=== PATIENT | female | born 1970 | race Caucasian/White ===

== ENCOUNTER 2019-03-13 12:20 | Emergency (ER) | payer OTHER ==
[2019-03-13] MEDS ORDERED: Ondansetron 4 MG/2 ML SDV IVPUSH ONE (12:35)
[2019-03-13] MEDS ORDERED: HYDROmorphone 1 MG/ML Syringe IVPUSH ONE (12:35)
[2019-03-13] MEDS ORDERED: Iopamidol 612 MG/ML 100 ML Bottle IVPUSH ONE (13:08)
[2019-03-13 13:34] LABS: ANION GAP 15.1; CHLORIDE,CL 104 mmol/L (101-111); SODIUM,NA 138 mmol/L (135-145)
--- NOTE | 2019-03-13 13:37 | EDM.PDOC ---
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 noted " hearing Pop during intercourse then sudden sharp pain. No prior discomfort, difficulty with urination or bowel c/o Lower Abdomen Pain Score (Numeric/FACES): 9 - Related Data Allergies Allergy/AdvReac Type Severity Reaction Status Date / Time No Known Allergies Allergy Verified 03/13/19 12:29 Home Meds: Home Meds . [No Known Home Meds] 03/13/19 [History] Past Medical History - Past Surgical History GI Surgical History: Reports: Other (See Below) Other GI Surgeries/Procedures: Rectal Prolapse with surgical repair Female Surgical History: Reports: Hysterectomy ED ROS GENERAL - Review of Systems Review Of Systems: Comprehensive ROS is negative, except as noted in HPI. ED EXAM, RENAL/ - Physical Exam Exam: See Below Exam Limited By: No Limitations General Appearance: Alert, Moderate Distress Eye Exam: Bilateral Eye: EOMI Ears: Normal External Exam Nose: Normal Inspection Throat/Mouth: Normal Inspection, Normal Lips, Normal Voice Head: Atraumatic, Normocephalic Neck: Normal Inspection Respiratory/Chest: No Respiratory Distress, Lungs Clear, Decreased Breath Sounds Cardiovascular: Normal Peripheral Pulses, Regular Rate, Rhythm GI/Abdominal: Normal Bowel Sounds, Soft, Tender (lower abdomen, greater lateral right . ) Back Exam: Full Range of Motion Neurological: Alert, Oriented, Normal Cognition Psychiatric: Normal Affect Skin Exam: Warm, Dry, Intact, Normal Color Course - Vital Signs Last Recorded V/S: Last Vital Signs Temp 96.4 F 03/13/19 12:28 Pulse 98 03/13/19 12:28 Resp 18 03/13/19 12:28 BP 130/96 H 03/13/19 12:28 Pulse Ox 100 03/13/19 12:28 - Orders/Labs/Meds Labs: Laboratory Tests 03/13/19 03/13/19 03/13/19 Range/Units 12:49 12:49 13:20 WBC 6.7 (5.0-10.0) 10^3/uL RBC 4.29 (4.2-5.4) 10^6/uL Hgb 13.6 (12.0-16.0) g/dL Hct 38.9 (37.0-47.0) % MCV 90.7 (80-100) fL MCH 31.7 (27.0-34.0) pg MCHC 35.0 (33.0-35.0) g/dL Plt Count 251 (150-450) 10^3/uL Neut % (Auto) 55.5 (42.2-75.2) % Lymph % (Auto) 33.9 (20.5-50.1) % Mchenry % (Auto) 6.8 (2-8) % Eos % (Auto) 3.4 H (1.0-3.0) % Baso % (Auto) 0.4 (0.0-1.0) % Sodium 138 (135-145) mmol/L Potassium 4.1 (3.6-5.0) mmol/L Chloride 104 (101-111) mmol/L Carbon Dioxide 23.0 (21.0-31.0) mmol/L Anion Gap 15.1 BUN 21 H (7-18) mg/dL Creatinine 0.8 (0.6-1.3) mg/dL Est Cr Clr Drug Dosing 75.07 mL/min Estimated GFR (MDRD) > 60 BUN/Creatinine Ratio 26.25 Glucose 103 (74-105) mg/dL Calcium 10.0 (8.4-10.2) mg/dl Total Bilirubin 0.6 (0.2-1.0) mg/dL AST 20 (10-42) IU/L ALT 22 (10-60) IU/L Alkaline Phosphatase 58 (42-121) IU/L Total Protein 7.6 (6.7-8.2) g/dl Albumin 4.4 (3.2-5.5) g/dl Globulin 3.2 Albumin/Globulin Ratio 1.38 Urine Color Yellow (YELLOW) Urine Appearance Slightly cloudy (CLEAR) Urine pH 7.5 (5.0-9.0) Ur Specific Elon 1.020 (1.005-1.030) Urine Protein Negative (NEGATIVE) Urine Glucose (UA) Negative (NEGATIVE) Urine Ketones Negative (NEGATIVE) Urine Occult Blood Large H (NEGATIVE) Urine Nitrite Negative (NEGATIVE) Urine Bilirubin Negative (NEGATIVE) Urine Urobilinogen 0.2 (0.2-1.0) mg/dL Ur Leukocyte Esterase Small H (NEGATIVE) Urine RBC 50-75 H /HPF Urine WBC 5-10 H (0-5/HPF) /HPF Ur Epithelial Cells Rare (NOT SEEN) /HPF Urine Bacteria Not seen (0-FEW/HPF) /HPF Urine Other Meds: Medications Discontinued Medications Generic Name Dose Route Start Last Admin Trade Name Freq PRN Reason Stop Dose Admin Hydromorphone HCl 1 mg 03/13/19 12:35 03/13/19 13:01 Dilaudid IVPUSH 03/13/19 12:36 1 mg ONETIME ONE Administration Iopamidol 100 ml 03/13/19 13:08 03/13/19 14:06 Isovue-300 (61%) IVPUSH 03/13/19 13:09 75 ml ONETIME ONE Administration Ondansetron HCl 4 mg 03/13/19 12:35 03/13/19 12:59 Zofran IVPUSH 03/13/19 12:36 4 mg ONETIME ONE Administration - Radiology Interpretation Free Text/Narrative:: Final Radiology Report Call: [phone] assistance Online chat: [email or web address] Name: ELLE GARCIA Age: 48Years F Date: 03/13/2019 SSN: -- : [id number] Study: CT ABDOMEN/PELVIS W Requesting Physician: PRO ALLISON Images: 230 Addl Studies: Provided Clinical History: Contrast: With Contrast Medium: isovue 300 Contrast Amount: 75 mL Contrast Method: iv Page 1 of 2 PROCEDURE INFORMATION: Exam: CT Abdomen And Pelvis With Contrast Exam date and time: 03/13/2019 1:52 PM Age: 48 years old Clinical indication: Abdominal pain; Patient HX: Erum pelvic pain, S/P cyst 7 weeks ago TECHNIQUE: Imaging protocol: Computed tomography of the abdomen and pelvis with intravenous contrast. Radiation optimization: All CT scans at this facility use at least one of these dose optimization techniques: automated exposure control; mA and/or kV adjustment per patient size (includes targeted exams where dose is matched to clinical indication); or iterative reconstruction. Contrast material: ISOVUE 300; Contrast volume: 75 ml; Contrast route: IV; COMPARISON: No relevant prior studies available. FINDINGS: Lungs: There are no suspicious pulmonary nodules or areas of lung consolidation. Liver: The liver is normal in architecture, without suspicious abnormality. Gallbladder and bile ducts: No calcified gallstones. No ductal dilation. Pancreas: The pancreatic parenchyma is normal in bulk and sharply marginated. Duct is not dilated. No calcifications, masses, or abnormal fluid collections. Spleen: Spleen is normal in size. No mass or fluid collection. Adrenals: There are no adrenal masses. Kidneys and ureters: Normal in parenchymal bulk. No hydronephrosis or asymmetric perinephric stranding. No solid masses. Punctate nonobstructing calcification right renal sinus and a few nonobstructing stones on the left also. Distal ureters are difficult to delineate in the pelvis. Stomach and bowel: No significant abnormalities of the stomach. There are no dilated or thickened small bowel loops. Gas and stool of appropriate quantities are seen in the colon. No mass. ELLE GARCIA | Final Radiology Report CONFIDENTIALITY STATEMENT This report is intended only for use by the referring physician, and only in accordance with law. If you received this in error, call [phone]. Page 2 of 2 Appendix: No evidence of appendicitis. Intraperitoneal space: No ascites. No abscess. No inflammation within the intra- abdominal fat. No pneumoperitoneum. No mass. Vasculature: There is atherosclerotic calcification of the aorto-iliac tree. There is no abdominal aortic aneurysm. Multiple phleboliths are present bilaterally low within the pelvis. Lymph nodes: Unremarkable. No enlarged lymph nodes. Bladder: The bladder is nearly completely void of urine. Reproductive: Unremarkable as visualized. Bones/joints: Age appropriate. No acute fracture. No dislocation. Soft tissues: See Intraperitoneal Space Finding. IMPRESSION: 1. No definitive sign of acute intra-abdominal pathology. 2. Ureters are difficult to delineate in the pelvis, making nonobstructing distal ureteral calculi difficult to exclude. Thank you for allowing us to participate in the care of your patient - Re-Assessments/Exams Free Text/Narrative Re-Assessment/Exam: 03/13/19 15:05 pain improved. Departure - Departure Time of Disposition: 15:02 Disposition: Home, Self-Care 01 Condition: Good Clinical Impression: Pelvic pain, Status post hysterectomy - Discharge Information *PRESCRIPTION DRUG MONITORING PROGRAM REVIEWED*: No *COPY OF PRESCRIPTION DRUG MONITORING REPORT IN PATIENT NANCIE: No Instructions: Pelvic Pain, Female, [id number] Forms: ED Department Discharge Additional Instructions: light activity no lifting greater than 10# x 24 hours, gradual increase as tolerated alternate tylenol and ibuprofen every 4 hours as needed for discomfort diet as tolerated Telephne contact with surgeon to determine if need for further follow up. Sepsis Event Note - Evaluation Sepsis Screening Result: Possible Sepsis Risk - Focused Exam Date Exam was Performed: 03/15/19 Time Exam was Performed: 06:23
== END 2019-03-13 15:25 | disposition home or self-care (01) ==
LOC: DL.ED 12:20
DX: R10.2 Pelvic and perineal pain (principal); Z90.710 Acquired absence of both cervix and uterus
CPT/HCPCS: 36415; 74177; 80053; 81001; 85025; 87086; 96374; 96375; 99284; J1170; J2405; Q9967

== ENCOUNTER 2019-08-18 12:23 | Emergency (ER) | payer SELFPAY ==
[2019-08-18] MEDS ORDERED: Lidocaine 1% 30 ML SDV INJECT ONE (14:06)
[2019-08-18] MEDS ORDERED: Bacitracin Oint 1 GM U/D Packet TOP ONE (14:06)
--- NOTE | 2019-08-18 14:12 | EDM.PDOC ---
Scribed by Freda Finney 08/18/19 [id number] for Anuel Price MD ED HPI GENERAL MEDICAL PROBLEM - General Chief Complaint: Laceration Stated Complaint: FISH HOOK IN FINGER Time Seen by Provider: 08/18/19 14:05 Source of Information: Reports: Patient, RN, RN Notes Reviewed History Limitations: Reports: No Limitations - History of Present Illness INITIAL COMMENTS - FREE TEXT/NARRATIVE: Patient presents to ER by POV with complaint of a fishhook in her right index finger. No other injury. Tetanus is up to date. Onset: Today Duration: Getting Worse Location: Reports: Upper Extremity, Right Quality: Reports: Ache Severity: Mild Improves with: Reports: None Worsens with: Reports: None Associated Symptoms: Reports: No Other Symptoms - Related Data Allergies Allergy/AdvReac Type Severity Reaction Status Date / Time No Known Allergies Allergy Verified 03/13/19 12:29 Home Meds: Home Meds . [No Known Home Meds] 03/13/19 [History] Past Medical History - Past Surgical History GI Surgical History: Reports: Other (See Below) Other GI Surgeries/Procedures: Rectal Prolapse with surgical repair Female Surgical History: Reports: Hysterectomy ED ROS GENERAL - Review of Systems Review Of Systems: Comprehensive ROS is negative, except as noted in HPI. ED EXAM, SKIN/RASH Exam: See Below Exam Limited By: No Limitations General Appearance: Alert, WD/WN, No Apparent Distress Head: Atraumatic, Normocephalic Respiratory/Chest: No Respiratory Distress Cardiovascular: Normal Peripheral Pulses Extremities: Other (fishhook stuck in right distal index finger. No sign of infection. ) Neurological: Alert, Oriented, No Motor/Sensory Deficits Psychiatric: Normal Mood ED SKIN PROCEDURES - Additional/Other Procedure(s) Other (Free Text) Procedure(s): Fish hook removal right index finger. Area cleaned and prepped by RN with hibiclens and sterile water. Area of fish hook locally blocked with lidocaine 1% 5cc. Using clean tech. the eye of the hook and lure were cut free and removed with side cutter. The hook shank grasped with needle nosed plier and advanced until the hook and gamaliel were exposed through the skin and removed with side cutter. The remaining hook backed out the entry wound. No residual foreign body. Wound was cleansed, and dried, bacitracin ointment applied, and dressing by RN. No complications. Course - Orders/Labs/Meds Meds: Medications Discontinued Medications Generic Name Dose Route Start Last Admin Trade Name Rashmi PRN Reason Stop Dose Admin Bacitracin 1 dose 08/18/19 14:06 Bacitracin Oint 1 Gm TOP 08/18/19 14:07 ONETIME ONE Lidocaine HCl 30 ml 08/18/19 14:06 Xylocaine-Mpf 1% INJECT 08/18/19 14:07 ONETIME ONE Departure - Departure Time of Disposition: 14:35 Disposition: Home, Self-Care 01 Condition: Good Clinical Impression: Fish hook injury of finger of right hand Qualifiers: Encounter type: initial encounter Qualified Code(s): S69.91XA - Unspecified injury of right wrist, hand and finger(s), initial encounter - Discharge Information *PRESCRIPTION DRUG MONITORING PROGRAM REVIEWED*: Not Applicable *COPY OF PRESCRIPTION DRUG MONITORING REPORT IN PATIENT NANCIE: Not Applicable Instructions: Puncture Wound, [id number] Forms: ED Department Discharge Additional Instructions: Keep finger wound clean and dry. Follow up in clinic if any signs of infection develop. I have read and agree with the documentation that has been completed regarding this visit. By signing this record, I attest that the documentation was completed in my physical presence and is an accurate record of the encounter.
== END 2019-08-18 14:25 | disposition home or self-care (01) ==
LOC: DL.ED 12:23
DX: S60.450A Superficial foreign body of right index finger, initial encounter (principal); W45.8XXA Other foreign body or object entering through skin, initial encounter
CPT/HCPCS: 64450; 99283-25; J2001